=== PATIENT | male | born 1960 | race Caucasian/White ===

== ENCOUNTER 2017-01-21 09:45 | Emergency (ER) | payer OTHER ==
[2017-01-21] MEDS ORDERED: SODIUM CHLORIDE 0.9% 1,000 ML IV STA (09:54)
[2017-01-21] MEDS ORDERED: ceFAZolin 1,000 MG in DEXTROSE/WATER 1 50ML.BAG IVPB STA (09:54)
[2017-01-21] MEDS ORDERED: RX INFO: IV CONTRAST WAS GIVEN 1 EACH MISC MISCELLANE PRN (09:54)
[2017-01-21] MEDS: HYDROmorphone 1 MG/ML 1 ML SYRINGE IVP STA ×2 (09:55→10:28)
[2017-01-21 10:03] LABS: Glucose,Whole Blood 149 mg/dL (75-99)
[2017-01-21 10:06] VITALS: TEMP 97.7
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
[2017-01-21 10:26] LABS: Basophils # (A) 0.1 k/uL (0-0.2); Basophils % (A) 1 %; CH 33.3; CHCM 35.5; Eosinophils # (A) 0.2 k/uL (0-0.7); Eosinophils % (A) 1 %; HCT 43.7 % (39.0-53.0); HDW 2.54; Luc # (Auto) 0.29; Luc % (Auto) 2; Lymphocytes % (A) 26 %; MCH 32.4 pg (25.0-35.0); MCHC 34.4 g/dL (31.0-37.0); MCV 94.3 fL (80.0-100.0); Mean Platelet Volume 8.5; Monocytes # (A) 0.7 k/uL (0-1.0); Monocytes % (A) 5 %; Neutrophils # (A) 9.9 k/uL (1.3-7.7); Neutrophils % (A) 65 %; RBC 4.63 m/uL (4.30-5.90); WBC 15.1 k/uL (3.8-10.6); WBC (Perox) 14.84
[2017-01-21 10:34] LABS: INR 1.1 (<1.2); Prothrombin Time 10.7 sec (9.0-12.0)
[2017-01-21 10:38] LABS: ALT 40 U/L (21-72); AST 29 U/L (17-59); Alcohol <10 mg/dL; Alkaline Phosphatase 65 U/L (38-126); Amylase 55 U/L (30-110); Anion Gap 11 mmol/L; Blood Urea Nitrogen 12 mg/dL (9-20); Carbon Dioxide 21 mmol/L (22-30); Chloride 108 mmol/L (98-107); Glucose 155 mg/dL (74-99); Non-African American GFR(MDRD) >60 (>60 ml/min/1.73 sqM); Potassium 3.8 mmol/L (3.5-5.1); Sodium 140 mmol/L (137-145); Total Bilirubin 0.9 mg/dL (0.2-1.3); Total Protein 7.2 g/dL (6.3-8.2)
[2017-01-21 10:47] LABS: Creatine Kinase 114 U/L (55-170)
[2017-01-21 10:53] LABS: Partial Thromboplastin Time 20.7 sec (22.0-30.0)
[2017-01-21 11:00] LABS: Creatine Kinase MB 1.2 ng/mL (0.0-2.4); Troponin I <0.012 ng/mL (0.000-0.034)
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
[2017-01-21] MEDS ORDERED: HYDROmorphone 1 MG/ML 1 ML SYRINGE IVP STA (11:28)
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
[2017-01-21 12:14] VITALS: BP 117/84; PULSE 115; RESP 19
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
== END 2017-01-21 12:51 | disposition other institution (70) ==
LOC: EC 09:45
DX: S82.251A Displaced comminuted fracture of shaft of right tibia, initial encounter for closed fracture (principal); S82.451A Displaced comminuted fracture of shaft of right fibula, initial encounter for closed fracture; S82.101A Unspecified fracture of upper end of right tibia, initial encounter for closed fracture; S81.011A Laceration without foreign body, right knee, initial encounter; S00.31XA Abrasion of nose, initial encounter; R10.13 Epigastric pain; R10.11 Right upper quadrant pain; M25.512 Pain in left shoulder; M79.642 Pain in left hand; V23.4XXA Motorcycle driver injured in collision with car, pick-up truck or van in traffic accident, initial encounter; Y92.410 Unspecified street and highway as the place of occurrence of the external cause
CPT/HCPCS: 99291; 96365; 96375; 96376 ×2; 96361 ×2; 36415; 93005; 86900; 86901; 80053; 82150; 82550; 82553; 83605; 83690; 84484; 85025; 85610; 85730; 86850; 80320; 71010; 72170; 73030; 73552; 73130; 73590; 72125; 70450; 75635; 71275; Q9967; J1170; J0690

== ENCOUNTER → 2017-04-01 | Outpatient (CLI) | payer OTHER | END | disposition home or self-care (01) | LOC: RADMRIMAIN 08:39 | PROVIDERS: ATTEND Orthopaedic Surgery | DX: Z53.9 Procedure and treatment not carried out, unspecified reason (principal) ==

== ENCOUNTER 2018-05-09 05:12 | Emergency (ER) | payer BC ==
[2018-05-09 05:18] VITALS: BP 158/94; PULSE 70; RESP 16; TEMP 98.3
--- NOTE | 2018-05-09 06:45 | XR ---
EXAM: XR Right Hip With Pelvis When Performed, 2 or 3 Views CLINICAL HISTORY: ITS.REASON XR Reason: Pain TECHNIQUE: Two or three views of the right hip, with pelvis when performed. COMPARISON: No relevant prior studies available. FINDINGS: Bones/joints: There are mild degenerative changes of both hip joints with small osteophytes and subchondral sclerosis. No acute fracture. No dislocation. Soft tissues: Unremarkable. IMPRESSION: No acute findings.
--- NOTE | 2018-05-09 06:46 | XR ---
EXAM: XR Lumbar Spine, 2 or 3 Views CLINICAL HISTORY: ITS.REASON XR Reason: Pain TECHNIQUE: Frontal and lateral views of the lumbar spine. COMPARISON: No relevant prior studies available. FINDINGS: Vertebrae: There is mild facet arthropathy in the lower lumbar spine. There are small anterior osteophytes involving L4 and L5. No acute fracture. Normal alignment. Disc spaces: No acute findings. No significant narrowing. Soft tissues: Unremarkable. IMPRESSION: No acute findings.
[2018-05-09] MEDS ORDERED: ORPHENADRINE 30 MG/ML 2 ML VIAL IM STA (07:23)
[2018-05-09] MEDS ORDERED: MORPHINE SULFATE 4 MG/ML SYRINGE IM STA (07:23)
--- NOTE | 2018-05-09 07:34 | ED ---
General Adult HPI - General Chief complaint: Extremity Problem,Nontraumatic Stated complaint: Back/Hip Pain Time Seen by Provider: 05/09/18 07:08 Source: patient, RN notes reviewed Mode of arrival: ambulatory Limitations: no limitations - History of Present Illness Initial comments: Patient's a 57-year-old male with no significant past medical history presented to the emergency room today with a chief complaint of increased right-sided back pain radiating down the right leg. Patient does admit to some numbness over the right hip area. He states that pain shoots down into the calf. Patient does admit the pain is worse with certain movements. He denies any known injury or trauma. States it began to feel it when he was at work 2 days ago. Patient does admit that he has a physical job. Patient denies bowel or bladder incontinence or retention. Denies any saddle anesthesia. Patient states been trying Tylenol Motrin at home little relief the symptoms. Patient denies any other complaints or symptoms. Patient denies any recent fever, chills , shortness of breath, chest pain, abdominal pain, nausea or vomiting, dysuria, hematuria, headaches or visual changes, or any other complaints. - Related Data Previous Rx's Medication Instructions Recorded Cyclobenzaprine [Flexeril] 10 mg PO TID #20 tab 05/09/18 Dexamethasone 0.75 mg PO DIRECTED #12 tablet 05/09/18 Ibuprofen [Motrin] 800 mg PO Q6HR #30 tab 05/09/18 Allergies Allergy/AdvReac Type Severity Reaction Status Date / Time No Known Allergies Allergy Verified 05/09/18 05:19 Review of Systems ROS Statement: Those systems with pertinent positive or pertinent negative responses have been documented in the HPI. ROS Other: All systems not noted in ROS Statement are negative. Past Medical History Past Medical History: No Reported History History of Any Multi-Drug Resistant Organisms: None Reported Past Surgical History: No Surgical Hx Reported Past Psychological History: No Psychological Hx Reported Smoking Status: Never smoker Past Alcohol Use History: None Reported Past Drug Use History: None Reported General Exam - General Exam Comments Initial Comments: General: The patient is awake and alert, in no distress, and does not appear acutely ill. Neck: The neck is supple. Cardiovascular: There is a regular rate and rhythm. No murmur, rub or gallop is appreciated. Respiratory: Lungs are clear to auscultation, respirations are non-labored, breath sounds are equal. No wheezes, stridor, rales, or rhonchi. Gastrointestinal: Abdomen soft on palpation. Nontender. No masses. Musculoskeletal: Normal RO. Mild tenderness down the lower lumbar spine at L4- L5. No step-off or deformity. Paravertebral tenderness over the lower lumbar on the right. Strength 5/5. Sensation intact. Pulses equal bilaterally 2+. Neurological: A&O x 3. CN II-XII intact, There are no obvious motor or sensory deficits. Coordination appears grossly intact. Speech is normal. Skin: Skin is warm and dry and no rashes or lesions are noted. Psychiatric: Cooperative, appropriate mood & affect, normal judgment. Limitations: no limitations Course Vital Signs 05/09/18 05:16 Temperature 98.3 F Pulse Rate 70 Respiratory 16 Rate Blood Pressure 158/94 O2 Sat by Pulse 98 Oximetry Medical Decision Making - Medical Decision Making X-rays of the right hip, lumbar spine reviewed and are negative for any acute fracture dislocation. Patient does have pain radiating to the right hip area with some numbness tingling. Denies any bowel or bladder incontinence retention. No saddle anesthesia. Patient's pain reproduced with certain movements and on palpation to lower lumbar spine and paravertebral areas. Patient will be treated with pain medicine and muscle relaxer here in the emergency room. His advised follow-up family physician and discuss options of MRI. Signs and symptoms of concern were discussed with the patient in detail and he is advised return for any symptoms or any increase or worsening. Patient will be treated with anti-inflammatories, muscle relaxer, and steroids for his symptoms. Disposition Clinical Impression: Acute lumbar radiculopathy Disposition: HOME SELF-CARE Condition: Good Instructions: Lumbar Radiculopathy (ED) Additional Instructions: Please use medication as discussed. Be aware muscle relaxant may make you drowsy. Please follow-up with family doctor in the next 2 days. Please return to emergency room if the symptoms increase or worsen or for any other concerns. Prescriptions: Cyclobenzaprine [Flexeril] 10 mg PO TID #20 tab Dexamethasone 0.75 mg PO DIRECTED #12 tablet Ibuprofen [Motrin] 800 mg PO Q6HR #30 tab Is patient prescribed a controlled substance at d/c from ED?: No Referrals: Flako Solis MD [Primary Care Provider] - 1-2 days Pasia,E Ja, DO [Doctor of Osteopathic Medicine] - 1-2 days Time of Disposition: 07:33
== END 2018-05-09 07:54 | disposition home or self-care (01) ==
LOC: EC 05:12
DX: M54.16 Radiculopathy, lumbar region (principal)
CPT/HCPCS: 72110; 73502; 99283; 96372 ×2; J2270; J2360